=== PATIENT | female | born 1990 | race Caucasian/White ===

== ENCOUNTER 2017-07-21 12:49 | Emergency (ER) | payer MEDICAID ==
[2017-07-21 15:53] LABS: HCG URINE POSITIVE (NEGATIVE)
== END 2017-07-21 17:40 | disposition home or self-care (01) ==
LOC: D.ER 12:49
PROVIDERS: Physician Assistant
DX: N91.2 Amenorrhea, unspecified (principal); S51.842A Puncture wound with foreign body of left forearm, initial encounter; X58.XXXA Exposure to other specified factors, initial encounter; Y93.89 Activity, other specified; Y92.029 Unspecified place in mobile home as the place of occurrence of the external cause

== ENCOUNTER 2017-07-31 11:02 | Emergency (ER) | payer MEDICAID ==
[2017-07-31 11:39] LABS: BASOPHILS 0.2 % (0-2); EOSINOPHILS 3.6 % (0-7); HEMATOCRIT 36.9 % (36.0-48.0); HEMOGLOBIN 12.8 g/dL (12-16); IMMATURE GRANULOCYTES 0.2 % (0-5); LYMPHOCYTES 30.4 % (15-50); MCH 31.1 pg (26.0-34.0); MCHC 34.7 g/dL (31.0-37.0); MCV 89.6 fL (80.0-100.0); MEAN PLATELET VOLUME 10.1 fL (7.4-10.4); MONOCYTES 7.8 % (2-11); NEUTROPHILS 57.8 % (40-80); PLATELET COUNT 230 10x3/uL (130-400); RBC 4.12 10x6/uL (4.00-5.40); RDW 12.2 % (11.5-14.5); WBC 5.9 10x3/uL (4.8-10.8)
[2017-07-31 11:43] LABS: HCG SERUM POSITIVE (NEGATIVE)
[2017-07-31 11:49] LABS: APPEARANCE CLEAR (CLEAR); BILIRUBIN NEGATIVE (NEGATIVE); COLOR YELLOW (YELLOW); GLUCOSE NEGATIVE (NEGATIVE); KETONE NEGATIVE (NEGATIVE); NITRITE NEGATIVE (NEGATIVE); PROTEIN NEGATIVE (NEGATIVE); UROBILINOGEN NORMAL (NORMAL)
[2017-07-31 11:51] LABS: BACTERIA FEW /hpf (NONE SEEN); EPITHELIAL CELLS 0-5 /hpf (0-5); RED CELLS - URINE 0-5 /hpf (0-5); WHITE CELLS - URINE 0-5 /hpf (0-5)
== END 2017-07-31 15:44 | disposition home or self-care (01) ==
LOC: D.ER 11:02
PROVIDERS: Family Medicine
DX: O26.891 Other specified pregnancy related conditions, first trimester (principal); Z3A.08 8 weeks gestation of pregnancy; A64 Unspecified sexually transmitted disease; A59.9 Trichomoniasis, unspecified

== ENCOUNTER 2018-02-28 20:11 | Inpatient (IN) | payer MEDICAID ==
[~2018-02-28] VITALS: Ht 162.6 cm; Wt 74.8 kg
--- NOTE | ~2018-02-28 | DS ---
PATIENT:JOHN MAGAÑA :88 MEDICAL RECORD: [id number] DISCHARGE SUMMARY ADMISSION DATE: 02/28/18 DISCHARGE DATE: 03/02/18 DATE OF ADMISSION: 02/28/2018 DATE OF DISCHARGE: 03/02/2018 ADMISSION DIAGNOSIS: at term. DISCHARGE DIAGNOSIS: Mother delivered at term. PROCEDURE: Vaginal delivery with induction of labor. ATTENDING: Ralph Jo MD HISTORY OF PRESENT ILLNESS: See the H&P in the chart. SUMMARY OF HOSPITALIZATION: The patient was admitted to the hospital and underwent induction of labor without incident. At the time of discharge, she has minimal lochia and has adequate pain control with ibuprofen and Tylenol. The Tylenol and ibuprofen will be continued . The patient has been given Sprintec for control and instructed to start this Tuesday. Risks, benefits and side effects of medication have been described. TRANSINT:[id number] Voice Confirmation ID: [id number] DOCUMENT ID: [id number] RALPH JO MD at 0805 CC: [id number] DICTATION DATE: 03/02/18 0758 INSPECTION SUPERVISOR: 03/02/18 1329 DIS IN 03/02/18 [facility] [address] [place] [address]
--- NOTE | ~2018-02-28 | OP ---
PATIENT NAME: JOHN MAGAÑA MEDICAL RECORD: [id number] :88 LOCATION:[id number] ADMISSION DATE:02/28/18 SURGEON: ALIN JO MD DATE OF OPERATION: 03/01/2018 PREDELIVERY DIAGNOSIS: at term. POSTDELIVERY DIAGNOSIS: Mother delivered at term. PROCEDURE: Induction of labor with vaginal delivery. SURGEON: Alin Jo MD ANESTHETIC: Continuous lumbar epidural. ANESTHESIOLOGIST: Dr. Daniel FINDINGS: Viable male , TOMMY presentation, Apgars are 9 and 9, weight 7 pounds 8 ounces. Midline episiotomy with 3-0 chromic repair. There is a perianal laceration and this is repaired with 4-0 chromic using a [id number]-[id number] interrupted stitch. Placenta spontaneous and intact. ESTIMATED BLOOD LOSS: 300 cc. DISPOSITION: Mother and infant recovered in the room. TRANSINT:[id number] Voice Confirmation ID: [id number] DOCUMENT ID: [id number] ALIN JO MD at 1158 CC: [id number] DICTATION DATE: 03/01/18 1511 [facility] FLOORING: 03/01/18 1555 ADM IN [facility] [id number] [place] [address]
[2018-02-28] MEDS ORDERED: KLONOPIN1 MG PO (22:35)
[2018-02-28 23:27] VITALS: BP 120/74; BMI 28.4
[2018-03-01 01:36] LABS: BASOPHILS 0 % (0-2); EOSINOPHILS 0.9 % (0-7); HEMOGLOBIN 12.1 g/dL (12-16); IMMATURE GRANULOCYTES 0.7 % (0-5); LYMPHOCYTES 25.2 % (15-50); MCH 30.5 pg (26.0-34.0); MCHC 34.6 g/dL (31.0-37.0); MCV 88.2 fL (80.0-100.0); MEAN PLATELET VOLUME 10.9 fL (7.4-10.4); NEUTROPHILS 66.2 % (40-80); PLATELET COUNT 184 10x3/uL (130-400); RBC 3.97 10x6/uL (4.00-5.40); RDW 12.9 % (11.5-14.5); WBC 6.7 10x3/uL (4.8-10.8)
[2018-03-01 01:51] LABS: APPEARANCE HAZY (CLEAR); COLOR YELLOW (YELLOW); GLUCOSE NEGATIVE (NEGATIVE); NITRITE NEGATIVE (NEGATIVE); PROTEIN NEGATIVE (NEGATIVE); SPECIFIC GRAVITY 1.005 (1.005-1.020)
[2018-03-01 01:52] LABS: BACTERIA FEW /hpf (NONE SEEN); BILIRUBIN NEGATIVE (NEGATIVE); EPITHELIAL CELLS 0-5 /hpf (0-5); KETONE MODERATE mg/dL (NEGATIVE); RED CELLS - URINE 0-5 /hpf (0-5); UROBILINOGEN NORMAL (NORMAL); WHITE CELLS - URINE 0-5 /hpf (0-5); YEAST <1+ /hpf (NONE SEEN)
[2018-03-01 01:54] LABS: UDS - AMPHET NEGATIVE QUAL (NEGATIVE); UDS - BARB NEGATIVE QUAL (NEGATIVE); UDS - BENZO NEGATIVE QUAL (NEGATIVE); UDS - COCAINE NEGATIVE QUAL (NEGATIVE); UDS - OPIATE NEGATIVE QUAL (NEGATIVE); UDS - PCP NEGATIVE QUAL (NEGATIVE); UDS - THC NEGATIVE QUAL (NEGATIVE)
[2018-03-01] MEDS ORDERED: BUPRENORPHINE HC2 MG SL (02:18)
[2018-03-01 10:09] VITALS: Ht 162.6 cm; Wt 74.8 kg
[2018-03-01 20:25] VITALS: BP 130/76
[2018-03-02 08:30] VITALS: BP 120/67
[2018-03-02 09:46] LABS: RAPID PLASMA REAGIN Non Reactive (Non Reactive)
[2018-03-02] MEDS ORDERED: IBUPROFEN800 MG PO (14:00)
[2018-03-02] MEDS ORDERED: SPRINTEC1 TAB PO (14:01)
== END 2018-03-02 16:00 | disposition home or self-care (01) | DRG 775 ==
LOC: D.LD 20:11
PROVIDERS: Obstetrics & Gynecology
PROC: 10907ZC Drainage of Amniotic Fluid, Therapeutic from Products of Conception, Via Natural or Artificial Opening (ICD-10-PCS; principal; 2018-03-01)
PROC: 10E0XZZ Delivery of Products of Conception, External Approach (ICD-10-PCS; 2018-03-01)
PROC: 0W8NXZZ Division of Female Perineum, External Approach (ICD-10-PCS; 2018-03-01)
PROC: 0HQ9XZZ Repair Perineum Skin, External Approach (ICD-10-PCS; 2018-03-01)
DX: O70.9 Perineal laceration during delivery, unspecified (principal); Z3A.39 39 weeks gestation of pregnancy; Z37.0 Single live birth

== ENCOUNTER 2021-03-04 13:41 | Inpatient (IN) | payer MEDICAID ==
[~2021-03-04] VITALS: Ht 162.6 cm; Wt 78.0 kg
[~2021-03-04 13:41] MED LIST: BUPRENORPHINE HC2 MG SL; IBUPROFEN800 MG PO; KLONOPIN1 MG PO; SPRINTEC1 TAB PO
[2021-03-10] MEDS ORDERED: PRENAVITE1 TAB (08:18)
[2021-03-10 08:19] VITALS: BP 121/82; Ht 162.6 cm; Wt 78.0 kg
[2021-03-10 08:26] LABS: BASOPHILS 0.2 % (0-2); EOSINOPHILS 1.4 % (0-7); HEMOGLOBIN 11.5 g/dL (12-16); IMMATURE GRANULOCYTES 0.3 % (0-5); LYMPHOCYTE ABS# 1.64 10x3/uL (1.18-3.74); LYMPHOCYTES 26.3 % (15-50); MCH 30.5 pg (26.0-34.0); MCHC 33.8 g/dL (31.0-37.0); MCV 90.2 fL (80.0-100.0); MONOCYTES 8.2 % (2-11); NEUTROPHIL ABS# 3.96 10x3/uL (1.56-6.13); NEUTROPHILS 63.6 % (40-80); PLATELET COUNT 154 10x3/uL (130-400); RBC 3.77 10x6/uL (4.00-5.40); RDW 13.6 % (11.5-14.5); WBC 6.2 10x3/uL (4.8-10.8)
[2021-03-10 08:49] LABS: UDS - AMPHET NEGATIVE QUAL (NEGATIVE); UDS - BARB NEGATIVE QUAL (NEGATIVE); UDS - BENZO POSITIVE QUAL (NEGATIVE); UDS - COCAINE NEGATIVE QUAL (NEGATIVE); UDS - OPIATE NEGATIVE QUAL (NEGATIVE); UDS - PCP NEGATIVE QUAL (NEGATIVE); UDS - THC NEGATIVE QUAL (NEGATIVE)
--- NOTE | 2021-03-10 23:32 | NUR ---
DR WILSON CALLED AT THIS TIME. INFORMED OF PATIENT PAIN AND INTERVENTIONS. ORDER REC'D FOR PERCOCET ONE TIME ONLY. Emigdio FLANNERY RN
--- NOTE | 2021-03-10 23:39 | NUR ---
PT MEDICATED FOR PAIN OF 8/10 TO BACK AND PERINEUM. NO DISTRESS NOTED. Emigdio FLANNERY RN
[2021-03-11 00:27] VITALS: BP 114/68
--- NOTE | 2021-03-11 00:28 | NUR ---
PT REC'D IN BED AT THIS TIME. CONTINUES TO RAT BACK PAIN AT 8/10 BUT STATES THAT CRAMPING AND PERINEAL PAIN ARE IMPROVED. WARM PACK GIVEN AT THIS TIME. VSS.ICE PACK GIVEN FOR PERINEAL DISCOMFORT. NO DISTRESS NOTED. Emigdio FLANNERY RN
--- NOTE | 2021-03-11 02:03 | NUR ---
PT STATES THAT SHE IS FINALLY GETTING COMFORTABLE AT THIS TIME. NO DISTRESS NOTED. Emigdio FLANNREY RN
--- NOTE | 2021-03-11 03:48 | NUR ---
PT REC'D AWAKE AT THIS TIME. MEDICATED WITH SCHEDULED TORADOL AND PRN PERCOCET FOR PAIN 04/18. Emigdio FLANNERY RN
--- NOTE | 2021-03-11 06:10 | NUR ---
PT REC'D IN BED AT THIS TIME. STATES THAT SHE STILL HAS BACK APIN BUT THE CRAMPING AND PERINEAL PAIN IS "FINE." PT DENIES ANY OTHER NEEDS AT THIS TIME. NO DISTRESS NOTED. Emigdio FLANNERY RN
[2021-03-11 07:15] VITALS: BP 117/68
--- NOTE | 2021-03-11 07:15 | NUR ---
RECEIVED PT SITTING UP IN BED. FEEDING INFANT AT THIS TIME. VSS. HRRR WITHOUT AUDIBLE MURMUR. BBS CLEAR. BS X 4. ABDOMEN SOFT/NON-DISTENDED. FUNDUS FIRM AT U/2. RUBRA LOCHIA SMALL AMT NOTED ON PERIPAD. PT STATES CHANGED SEVERAL PADS. INSTRUCTED PT TO SAVE ALL PERIPADS FOR NURSE TO VIEW. PT DENIES PASSING CLOTS. INSTRUCTED TO NOTIFY NURSE OF CLOTS SIZE OF EGG OR BIGGER. SL SITE CLEAR. PT C/O BACK PAIN OF "6" ON 0-10 PAIN SCALE. STATES "I HAVE SCOLIOSIS". STATES "IT HURTS WHERE THEY TRIED THE EPIDURAL". PT STATES HAS HEATED BLANKET ON BACK TO HELP. WILL CHECK ON K-PAD FOR PT. SR UP X 2. CALL LIGHT IN REACH.
[2021-03-11 07:34] LABS: BASOPHILS 0.3 % (0-2); HEMATOCRIT 34.5 % (36.0-48.0); LYMPHOCYTES 20.1 % (15-50); MCH 30.8 pg (26.0-34.0); MCHC 34.7 g/dL (31.0-37.0); MCV 88.8 fL (80.0-100.0); MEAN PLATELET VOLUME 9.4 fL (7.4-10.4); MONOCYTES 6.7 % (2-11); NEUTROPHILS 71.9 % (40-80); PLATELET COUNT 170 10x3/uL (130-400); RBC 3.89 10x6/uL (4.00-5.40); RDW 13.8 % (11.5-14.5)
--- NOTE | 2021-03-11 07:45 | NUR ---
SO AT DESK ASKING ABOUT ORDERING FOOD FOR PATIENT. THIS NURSE TO ROOM. DISCUSSED WITH PT AND SO ON ORDERING MEALS THROUGH DIETARY USING 1377 NUMBER TO CALL AND MENU HANDED TO PT. PT AND SO INFORMED THAT DIETARY STAFF SOMETIMES TAKES PT ORDER FOR NEXT MEALS WHEN DISTRIBUTING/PICKING UP TRAYS WELL. ALSO INFORMED PT AND SO OF ONE TIME GUEST TRAY PROVIDED USING MEAL TICKET-PAPER TICKET THAT SO CAN TAKE TO [place] AND OBTAIN FREE MEAL. BOTH VERBALIZE UNDERSTANDING.
[2021-03-11 07:50] LABS: WBC 11.4 10x3/uL (4.8-10.8)
--- NOTE | 2021-03-11 08:10 | NUR ---
[facility] NOTIFIED OF NEED FOR K-PAD FOR PATIENT. INFORMED THAT K-PAD MACHINES ARE ON EACH NURSING UNIT AND THEY DON'T HAVE ANY IN THEIR DEPT. [facility] SEARCHED FOR K-PAD MACHINE-ONE NOT FOUND. CALLED MED SURG DEPT AND THEY STATE THEY DO NOT HAVE ONE. WILL CONTINUE TO SEARCH FOR K-PAD MACHINE FOR PATIENT.
[2021-03-11 08:13] LABS: RAPID PLASMA REAGIN Non Reactive (Non Reactive)
--- NOTE | 2021-03-11 08:30 | NUR ---
SO AT DESK WITH WET TOWEL PLACED IN TRASH BAG. STATES "CAN YOU HEAT THIS UP FOR HER BACK". INFORMED SO THAT WE ARE NOT ALLOWED TO HEAT TOWELS FOR PATIENTS DUE TO RISK OF BURNING PATIENT. INFORMED THAT THIS NURSE DISCUSSED WITH PT THAT I WILL CHECK INTO GETTING K-PAD FOR PT AND CURRENTLY ATTEMPTING TO LOCATE ONE FOR PT. SO STATES "WELL THEN, CAN SHE GET AN ICE PACK FOR DOWN THERE". QUICK POP ICE PACK TAKEN TO PT.
--- NOTE | 2021-03-11 09:14 | NUR ---
PT REQUESTS AND RECEIVES DIAPER ICE PACK.
--- NOTE | 2021-03-11 09:40 | NUR ---
PT C/O BACK PAIN OF "8" ON 0-10 PAIN SCALE. STATES PERINEUM HURTS WELL, BUT "MY BACK TAKES OVER". TORADOL 10 MG AND PERCOCET 5/325 GIVEN PO ORDERED.
--- NOTE | 2021-03-11 10:10 | NUR ---
PT SITTING UP IN BED. AWAKE. STATES PAIN NOW "6" ON 0-10 PAIN SCALE. STATES BACK CONTINUES TO HURT. DR WILSON ON UNIT. NOTIFIED OF PT CONTINUED C/O BACK PAIN AFTER PAIN MEDS. ALSO NOTIFIED OF ATTEMPT TO OBTAIN K-PAD WITHOUT ONE AVAILABLE. ORDER RECEIVED FOR FLEXERIL 10 MG PO ONE TIME DOSE.
--- NOTE | 2021-03-11 10:22 | NUR ---
FLEXERIL 10 MG GIVEN PO ORDERED. PT INSTRUCTED ON MED. VERBALIZES UNDERSTANDING.
--- NOTE | 2021-03-11 11:30 | NUR ---
PT SITTING UP IN BED. FEEDING INFANT. STATES PAIN "A LOT BETTER". ENCOURAGED PT TO AMBULATE/SHOWER WHILE MEDICATION HELPING WITH PAIN. PT VERBALIZES UNDERSTANDING.
[2021-03-11 12:38] VITALS: BP 117/76
--- NOTE | 2021-03-11 12:38 | NUR ---
PT SITTING UP IN BED. VSS. FUNDUS FIRM AT U/1. RUBRA LOCHIA SMALL AMT. PERIPADS-3 WITH SCANT-SMALL AMT OF RUBRA LOCHIA NOTED. PT DENIES PASSING CLOTS. PERINEUM/RECTAL AREAS WITHOUT SWELLING OR BRUISING NOTED. PT STATES WILL SHOWER SOON. DENIES NEED FOR TOILETRIES.
--- NOTE | 2021-03-11 13:20 | NUR ---
PT OOB AND UP TO SHOWER.
--- NOTE | 2021-03-11 14:30 | NUR ---
PT SITTING UP IN BED. FEEDING INFANT. STATES HAD SHOWER. ENCOURAGED PT TO NOTIFY NURSE WHEN PT GETS UP TO CHANGE BED LINENS. PT VERBALIZES UNDERSTANDING.
--- NOTE | 2021-03-11 15:52 | NUR ---
DR WILSON CALLS. STATUS REPORT GIVEN. ORDER RECEIVED.
[2021-03-11 15:57] VITALS: BP 113/66
--- NOTE | 2021-03-11 16:06 | NUR ---
PT C/O BACK PAIN OF "8" ON 0-10 PAIN SCALE. TORADOL 10 MG, FLEXERIL 10 MG AND PERCOCET 5/325 GIVEN PER PT REQUEST ALL TOGETHER AT THIS TIME. PT INSTRUCTED ON MEDS. VERBALIZES UNDERSTANDING.
--- NOTE | 2021-03-11 16:26 | NUR ---
DR WILSON VISITS WITH PT.
--- NOTE | 2021-03-11 17:00 | NUR ---
PT LYING TO LEFT SIDE IN BED. STATES PAIN TOLERABLE LONG SHE STAYS TO LEFT SIDE. DENIES FURTHER NEEDS.
--- NOTE | 2021-03-11 18:14 | NUR ---
PT LYING TILTED TO LEFT SIDE. DENIES NEEDS OR C/O.
--- NOTE | 2021-03-11 19:00 | NUR ---
REPORT GIVEN BY NEHEMIAH VERGARA
--- NOTE | 2021-03-11 19:13 | NUR ---
TO PT ROOM. INTRODUCED MYSELF TO PT AND FAMILY. I INFORMED THEM THAT SHE WILL BE MOVING OVER TO THE WOMEN'S SIDE UNTIL D/C. THEY WERE AGREEABLE. I ASKED TO PLEASE PACK UP PT THINGS SO THEY WILL BE READY TO MOVE WHEN THE TIME COMES.
--- NOTE | 2021-03-11 19:45 | NUR ---
ASSESSMENT COMPLETE. HEART SOUNDS WNL. LUNGS ARE CLEAR. PT IS VOIDING WELL. LOCHIA IS SMALL. FUNDUS FIRM ONE BELOW AND SLIGHTLY TO THE LEFT. BOTH PARENTS ARE BONDING WELL WITH THE BABY. PT AMBULATES WELL WITH GAIT A LITTLE OFF DUE TO HER CHRONIC BACK PAIN. PT HAS SCOLIOSIS. PT TELLS ME THAT THEY HAVE 6 BOYS BETWEEN THE TWO. SHE IS SMILING SWEETLY TALKING ABOUT THEM.
--- NOTE | 2021-03-11 20:00 | NUR ---
PT HAS BEEN MOVED TO ROOM 1218. THEY ARE SETTLING IN NOW. NO C/O. THE PAT AMBULATED FROM HER ROOM ON L/D TO HER ROOM ON THE WOMANS SIDE. SHE DID VERY WELL. I ENCOURAGED HER TO GET OUT IN THE HALLS AND WALK.
--- NOTE | 2021-03-11 22:26 | NUR ---
PT HAS NOT ASKED FOR PAIN MEDS THIS SHIFT. I ASKED HER IF SHE WAS HURTING AND SHE SAID YES. I REMINDED HER THAT SHE NEEDS TO ASK FOR PAIN MEDS. SHE TOLD ME SHE HATED TO ASK FOR ANYTHING. WE HAS A LITTLE DISCUSSION ON THIS. SHE TOOK PERCOCET 5, FLEXERIL FOR HER BACK PAIN AND KLONIPIN FOR HER ANXIETY. I INFORMED HER THAT SUBUTEX HAD BEEN ORDERED FOR HER AND SHE REFUSED. SHE SAID THAT SHE IS TRYING TO COME OFF THAT DRUG.
--- NOTE | 2021-03-11 23:15 | NUR ---
PT SAYS HER PAIN IS A LITTLE BETTER. SHE SEEMS A LITTLE CALMER NOW.
[2021-03-11 23:30] VITALS: BP 107/72
--- NOTE | 2021-03-12 00:04 | NUR ---
PT IS DOING WELL. NO C/O AT THIS TIME. I TOLD HER THAT WHILE THE BABY WAS SLEEPING THAT MAYBE SHE COULD CLOSE HER EYES AND GET SOME REST FOR HERSELF. SHE SAID SHE'D TRY. WE DID TRUN THE LIGHT OFF. IS SOUND ASLEEP ON THE MADE OUT BED.
--- NOTE | 2021-03-12 01:56 | NUR ---
MOM AWAKE FEEDING BABY. NO C/O
--- NOTE | 2021-03-12 04:24 | NUR ---
PT REQUESTED PAIN MEDS. PERCOCET [address] JOHNSON. PT STATES PAIN IS IN HER BACK. BABY IS IN BED WITH PT AND I ASKED THEM TO CALL ME IF SHE WAS GOING TO GO TO SLEEP SO I COULD PUT THE BABY IN THE CRIB. EXPLAINED IF BABY IS SLEEPING IN BED WITH MOTHER THERE IS ALWASY THAT CHANCE OF SUFFICATION. PT VERBALIZED UNDERSTANDING.
--- NOTE | 2021-03-12 06:33 | NUR ---
PT IS STILL HAVING SOME BACK PAIN. DOES NOT REQUEST PAIN MEDS AT THIS TIME
--- NOTE | 2021-03-12 06:37 | NUR ---
PT IS RESTIMG QUIETLY NO C/O OR NEEDS
--- NOTE | 2021-03-12 07:00 | NUR ---
REPORT RECEIVED FROM Jim DEUTSCH RN.
[2021-03-12 08:00] VITALS: BP 116/69
--- NOTE | 2021-03-12 08:15 | NUR ---
ASSESSMENT COMPLETED. SEE FLOWSHEET. OFFERED PAIN MEDICATION. PT. STATES SHE WOULD LIKE PAIN MED. NO OTHER NEEDS VOICED AT THIS TIME.
--- NOTE | 2021-03-12 15:20 | NUR ---
PT SITTING UP IN BED FEEDING BABY. OFFERED PAIN MEDICATION. PT. STATES SHE WOULD LIKE PAIN MED. NO OTHER NEEDS VOICED AT THIS TIME.
[2021-03-12] MEDS ORDERED: PERCOCET 5-3251 TAB PO (16:19)
[2021-03-12] MEDS ORDERED: CYCLOBENZAPRINE10 MG PO (16:21)
[2021-03-12] MEDS ORDERED: IBUPROFEN800 MG PO (16:22)
--- NOTE | 2021-03-12 16:30 | NUR ---
REVIEWED DISCHARGE INSTRUCTIONS WITH PT. PT STATES UNDERSTANDING. PRESCRIPTIONS GIVEN. FOLLOW UP APPOINTMENT GIVEN FOR APRIL 21, 2021 @ 3;15. NO QUESTIONS VOICED BY PT. PT DISCHARGED TO ROOMING IN.
== END 2021-03-12 16:52 | disposition home or self-care (01) | DRG 807 ==
LOC: D.LD 03-10 07:00 → D.WS 03-10 07:15 → D.LD 03-10 07:15 → D.WS 03-11 21:09
PROVIDERS: ADMIT Obstetrics & Gynecology; ATTEND Obstetrics & Gynecology
PROC: 10E0XZZ Delivery of Products of Conception, External Approach (ICD-10-PCS; principal; 2021-03-10)
PROC: 0W8NXZZ Division of Female Perineum, External Approach (ICD-10-PCS; 2021-03-10)
PROC: 3E033VJ Introduction of Other Hormone into Peripheral Vein, Percutaneous Approach (ICD-10-PCS; 2021-03-10)
DX: O76 Abnormality in fetal heart rate and rhythm complicating labor and delivery (principal); Z37.0 Single live birth; Z3A.39 39 weeks gestation of pregnancy; O99.344 Other mental disorders complicating childbirth; F41.8 Other specified anxiety disorders; G89.29 Other chronic pain; O32.1XX0 Maternal care for breech presentation, not applicable or unspecified